=== PATIENT | male | born 1940 | race Caucasian/White ===

== ENCOUNTER 2017-09-20 09:08 | Day surgery (SDC) | payer MEDICARE ==
--- NOTE | 2017-09-20 07:15 | History and Physical Report ---
DATE: 09/20/2017. CHIEF COMPLAINT AND HISTORY OF CHIEF COMPLAINT: This patient presents with a history of an intractable postlaminectomy radiculopathy. A spinal cord stimulator implant had been placed by Dr. Avitia. Although during the initial period of placement the stimulator helped, over time it did not help and he has shut the system off. After careful review and discussion, we decided that placement of a new generator with his current indwelling laminectomy paddle stimulator would be of some value. He is here for generator replacement. PAST MEDICAL HISTORY: Noncontributory. PAST SURGICAL HISTORY: Knee replacement, spinal surgery. MEDICATIONS ON ADMISSION: To be provided. ALLERGIES: None. SOCIAL HISTORY: Noncontributory. FAMILY HISTORY: Cancer. REVIEW OF SYSTEMS: The patient seems appropriate and in no acute distress. The remainder of the systems review shows glasses, degenerative arthritis. PHYSICAL EXAMINATION: General: Height and weight are unavailable. Vital Signs: Unavailable. HEENT: Within normal limits. Lungs: Clear. Heart: Regular rate and rhythm. Abdomen: Nontender. Musculoskeletal: Examination of the musculoskeletal system shows the generator in the posterior gluteal margin. The incisional site is intact. His underlying pain pattern is a postlaminectomy radiculopathy extending into both legs. Motor and sensory field function shows sensory changes and motor changes to the left lower extremity with weakness. Ambulation: Assistive device is utilized. Neurologic: Cranial nerves are intact. IMPRESSION: 1. POSTLUMBAR LAMINECTOMY SYNDROME, ICD-10 CODE M96.1. 2. LUMBAR RADICULOPATHY, ICD-10 CODE M54.16 AND M54.17. 3. IMPLANTED LAMINECTOMY PADDLE STIMULATOR WITH BATTERY DEPLETION. PLAN: The patient is here for removal and replacement of the generator. All of the potential risks, side effects, and complications have been carefully reviewed and discussed. The procedure will be considered outpatient. JOB NUMBER: [id number] cc: Margoth Castillo D.O. MTDD
[~2017-09-20 09:08] MED LIST: ACETAMINOPHEN 1,000 MG/100 ML BTL IV ONE; CEFAZOLIN 2 Gram 2 GM/50 ML BAG IVPB ONE; FAMOTIDINE 20MG TABLET PO ONE; MECLIZINE 25 MG TABLET PO ONE; METOCLOPRAMIDE 10 MG TABLET PO ONE
[2017-09-20] MEDS ORDERED: MIDAZOLAM HCL 2MG/2ML VIAL IV ONE (09:09)
[2017-09-20] MEDS ORDERED: LIDOCAINE 1% MDV (10MG/ML) 20ML VIAL SQ ONE (09:09)
[2017-09-20] MEDS ORDERED: LIDOCAINE 1% W/EPI 1:200,000 MPF 30ML SQ ONE (09:09)
[2017-09-20] MEDS ORDERED: FENTANYL PF 100MCG/2ML VIAL IV ONE (09:09)
[2017-09-20] MEDS ORDERED: PROPOFOL 10 MG/ML VIAL IV ONE (09:09)
[2017-09-20] MEDS ORDERED: BUPIVACAINE 0.5% W/EPI MPF 30 ML VIAL IVP ONE (09:09)
[2017-09-20] MEDS ORDERED: METOCLOPRAMIDE HCL 10 MG/2 ML VIAL IVP ONE (09:09)
--- NOTE | 2017-09-21 08:07 | Operative Note ---
DATE OF SURGERY: 09/20/2017. PREOPERATIVE DIAGNOSIS: 1. POSTLUMBAR LAMINECTOMY SYNDROME, ICD-10 CODE M96.1. 2. LUMBAR RADICULOPATHY, ICD-10 CODE M54.16 AND M54.17. 3. LAMINECTOMY PADDLE STIMULATOR WITH BATTERY DEPLETION. POSTOPERATIVE DIAGNOSIS: 1. POSTLUMBAR LAMINECTOMY SYNDROME, ICD-10 CODE M96.1. 2. LUMBAR RADICULOPATHY, ICD-10 CODE M54.16 AND M54.17. 3. LAMINECTOMY PADDLE STIMULATOR WITH BATTERY DEPLETION. OPERATION: Fluoroscopically guided incision, subcutaneous dissection, and replacement of internal pulse generator for paddle laminectomy stimulator. SURGEON: Juan Cabello D.O. ANESTHESIA: Local sedation. ANESTHESIA PROVIDER: Júnior Leung CRNA. INDICATION: This patient presents with a history of intractable lumbar radiculopathy. A laminectomy paddle stimulator had been placed a number of years previously. The generator has been depleted. He is here for generator replacement. DESCRIPTION OF PROCEDURE: Intravenous lines, vital sign monitoring, and intravenous sedation. Prepped and draped with sterile technique. Under imaging , the generator pouch at the left posterosuperior gluteal margin was identified and infiltrated with local. An incision was made and subcutaneous dissection was conducted to the generator pouch. It was opened, and the generator was then exteriorized. A new [employer] WaveWriter programmable rechargeable generator was then placed onto the field. The previous generator was from the leads and the new WaveWriter generator was interfaced to the leads. Antibiotic irrigation and Bovie for hemostasis. The generator was placed into the pouch and secured to the posterior fascia with nonabsorbable suture. The incisions were then closed with Vicryl for the fascia and a running subcuticular Vicryl for the skin. Dermabond closure. He was transported to the recovery room stable, showing no side effects from the procedure or the sedation. When awake, alert, and appropriate, he was prepared for discharge. DISCHARGE INSTRUCTIONS: 1. The sites are to remain clean and dry. No showering or bathing in any way that would disrupt the dressings. If this happens, contact the clinic. 2. Standard medications to be resumed including Levaquin the antibiotic 500 mg once a day for 14 days. If allergic, then Clindamycin 300 mg 3 times a day for 14 days will be utilized. 3. The patient should keep his activities low until he is seen in the office in seven to ten days. The office will contact the patient at home within the next 24 to 48 hours to set up this appointment. 4. All other instructions were provided. Diet, activities, and restrictions have been provided. The information was given to the patient and his . JOB NUMBER: [id number] cc: Margoth Laureano
== END 2017-09-20 13:45 | disposition home or self-care (01) ==
LOC: SUR 09:08
PROVIDERS: ATTEND Pain Medicine Interventional Pain Medicine
DX: M96.1 Postlaminectomy syndrome, not elsewhere classified (principal); M54.16 Radiculopathy, lumbar region; M54.17 Radiculopathy, lumbosacral region; E11.9 Type 2 diabetes mellitus without complications; Z79.84 Long term (current) use of oral hypoglycemic drugs; I10 Essential (primary) hypertension; K21.9 Gastro-esophageal reflux disease without esophagitis; G47.30 Sleep apnea, unspecified
CPT/HCPCS: 63685; 00300; 95972; J3010; J0690; C1820; J2765